=== PATIENT | male | born 1970 | race Caucasian/White ===

== ENCOUNTER 2017-07-16 17:26 | Emergency (ER) | payer OTHER ==
[~2017-07-16] VITALS: Ht 170.1 cm; Wt 97.5 kg
[~2017-07-16 17:26] MED LIST: DAYPRO600 M1 PO; FLEXERIL10 MG PO; HYDROCODONE BIT1 T11 PO; INDOMETHACIN25 M1 PO; INDOMETHACIN50 MG PO; PREDNISONE20 MG PO; ROBAXIN750 MG PO; SIMVASTATIN40 MG PO
[2017-07-16 17:46] LABS: BILIRUBIN 1+ (NEGATIVE); BLOOD 2+ (NEGATIVE); CLARITY SL CLOUDY (CLEAR); COLOR YELLOW (YELLOW); GLUCOSE NEGATIVE (NEGATIVE); KETONE TRACE (NEGATIVE); LEUKO ESTERASE NEGATIVE (NEGATIVE); NITRITE NEGATIVE (NEGATIVE)
[2017-07-16 17:53] LABS: BACTERIA 2+; MUCOUS 3+
[2017-07-16 17:54] LABS: RBC 16-20 rbc/hpf (0-2)
[2017-07-16 18:04] LABS: HEMATOCRIT 37.4 % (42.0-52.0); HEMOGLOBIN 12.5 g/dl (14.0-18.0); MEAN CELL VOLUME 90.8 fl (80.0-94.0); MEAN CORPUSCULAR HGB 30.3 pg (27.0-31.0); MEAN CORPUSCULAR HGB CONC 33.4 g/dl (33.0-37.0); MEAN PLATELET VOLUME 9.7 fl (9.6-12.3); PLATELET COUNT AUTOMATED 326 10*3/uL (130-400); RED BLOOD COUNT 4.12 10*6/uL (4.50-5.90); RED CELL DISTRI WIDTH 12.7 % (0-14.5); WHITE BLOOD COUNT 8.5 10*3/uL (4.8-10.8)
[2017-07-16 18:14] LABS: ACT PARTIAL THROMBO TIME 21.2 SECONDS (20.8-31.5); INTERNATIONAL NORM RATIO 1.1 (2.0-3.5)
[2017-07-16 18:19] LABS: ALBUMIN 2.9 gm/dl (3.1-4.5); ALKALINE PHOSPHATASE 56 U/L (45-117); BUN 21 mg/dl (7-24); CHLORIDE 96 mmol/L (98-107); CREATININE 1.15 mg/dL (0.70-1.30); LIPASE 140 U/L (73-393); POTASSIUM 3.3 mmol/L (3.5-5.1); SGOT/AST 18 IU/L (3-35); SGPT/ALT 46 U/L (12-78); SODIUM 133 mmol/L (136-145); TOTAL PROTEIN 7.6 gm/dL (6.4-8.2)
[2017-07-16 18:23] LABS: PLATELET SUFFICIENCY NORMAL (NORMAL); TOTAL CELLS COUNTED 100 #CELLS
[2017-07-16 18:24] LABS: TROPONIN I < 0.015 ng/ml (<0.045)
[2017-07-16] MEDS ORDERED: ZYLOPRIM100 MG PO (22:50)
== END 2017-07-16 23:30 | disposition short-term general hospital (02) ==
LOC: ED 17:26
PROVIDERS: Emergency Medicine
DX: K35.3 Acute appendicitis with localized peritonitis (principal); R10.84 Generalized abdominal pain; M10.9 Gout, unspecified; Z79.899 Other long term (current) drug therapy

== ENCOUNTER → 2017-08-01 | Outpatient (CLI) | payer OTHER ==
[~2017-08-01] MED LIST changes: +ZYLOPRIM100 MG PO
== END | disposition home or self-care (01) ==
LOC: CT 07:46
DX: K76.0 Fatty (change of) liver, not elsewhere classified (principal); K35.3 Acute appendicitis with localized peritonitis

== ENCOUNTER 2017-09-19 18:24 | Emergency (ER) | payer OTHER ==
[~2017-09-19] VITALS: Ht 170.1 cm; Wt 95.3 kg
== END 2017-09-19 18:52 | disposition home or self-care (01) ==
LOC: ED 18:24
DX: M10.9 Gout, unspecified (principal); M25.462 Effusion, left knee; Z79.899 Other long term (current) drug therapy

== ENCOUNTER → 2020-05-24 | Outpatient (CLI) | payer OTHER ==
[~2020-05-24] MED LIST changes: +NORVASC5 MG PO; +OMEPRAZOLE40 MG PO
== END | disposition home or self-care (01) ==
LOC: CARD 00:17
PROVIDERS: ATTEND Internal Medicine Cardiovascular Disease
DX: R07.89 Other chest pain (principal)

== ENCOUNTER 2022-05-30 12:35 | Emergency (ER) | payer OTHER ==
[~2022-05-30] VITALS: Ht 170.1 cm; Wt 99.8 kg
[2022-05-30] MEDS ORDERED: PREDNISONE10 MG PO (13:01)
== END 2022-05-30 13:07 | disposition home or self-care (01) ==
LOC: ED 12:35
DX: M10.9 Gout, unspecified (principal); I10 Essential (primary) hypertension; K21.9 Gastro-esophageal reflux disease without esophagitis; E78.00 Pure hypercholesterolemia, unspecified; Z98.890 Other specified postprocedural states

== ENCOUNTER → 2022-08-28 | Outpatient (CLI) | payer OTHER ==
[~2022-08-28] MED LIST changes: +PREDNISONE10 MG PO
== END | disposition home or self-care (01) ==
LOC: CARD 11:23
PROVIDERS: ATTEND Nurse Practitioner
DX: I35.0 Nonrheumatic aortic (valve) stenosis (principal)

== ENCOUNTER → 2025-01-18 | Outpatient (CLI) | payer OTHER ==
[~2025-01-18] MED LIST changes: +IOHEXOL 300 MG/ML 100 ML VIAL IV ONE
[2025-01-18 15:01] LABS: BUN 11 mg/dl (9-23); SGPT/ALT 25 U/L (5-49)
== END | disposition home or self-care (01) ==
LOC: CT 01-16 10:00 → LAB 14:01 → CT 15:00
PROVIDERS: ATTEND Nurse Practitioner
DX: J35.1 Hypertrophy of tonsils (principal); R59.0 Localized enlarged lymph nodes; M47.812 Spondylosis without myelopathy or radiculopathy, cervical region; R93.89 Abnormal findings on diagnostic imaging of other specified body structures; M48.02 Spinal stenosis, cervical region